=== PATIENT | female | born 1995 | race Caucasian/White ===

== ENCOUNTER 2017-07-05 18:38 | Emergency (ER) | payer OTHER ==
[2017-07-05 18:44] VITALS: BP 119/68
[2017-07-05 19:11] LABS: APPEARANCE,URINE CLOUDY; BILIRUBIN,URINE NEGATIVE (NEGATIVE); GLUCOSE, URINE NEGATIVE (NEGATIVE); KETONES,URINE NEGATIVE (NEGATIVE); LEUKOCYTE ESTERASE,URINE TRACE (NEGATIVE); NITRITE,URINE POSITIVE (NEGATIVE); PROTEIN,URINE 30 mg/dL (NEGATIVE); URINE SPECIFIC GRAVITY 1.009
[2017-07-05] MEDS ORDERED: PHENAZOPYRIDINE HCL 100 MG TABLET PO ONE (20:38)
[2017-07-05] MEDS ORDERED: CEPHALEXIN 500 MG CAPSULE PO ONE (20:38)
--- NOTE | 2017-07-05 20:41 | ER Document Report ---
HPI - HPI Patient complains to provider of: UTI symptoms Onset: Last week Onset/Duration: Persistent Quality of pain: Burning Pain Level: 4 Context: Patient presents complaining of urinary frequency, dysuria and hematuria. Patient denies any fever or back pain. Patient just complains of bladder tenderness. Patient denies any nausea or vomiting. Associated Symptoms: Other - Urinary symptoms. denies: Fever, Vomiting Exacerbated by: Denies Relieved by: Denies Similar symptoms previously: Yes Recently seen / treated by doctor: No - ROS ROS below otherwise negative: Yes Systems Reviewed and Negative: Yes All other systems reviewed and negative - CONSTITUTIONAL Constitutional: DENIES: Fever - GASTROINTESTINAL Gastrointestinal: REPORTS: Abdominal Pain. DENIES: Nausea, Patient vomiting - URINARY Urinary: REPORTS: Dysuria, Frequency - MUSCULOSKELETAL Musculoskeletal: DENIES: Back Pain - DERM Skin Color: Normal Skin Problems: None Past Medical History - General Information source: Patient - Social History Smoking Status: Current Every Day Smoker Smoking Education Provided: Yes Frequency of alcohol use: Occasional Drug Abuse: None Occupation: Foodservice Family History: Reviewed & Not Pertinent - Medical History Medical History: Negative Past Surgical History: Reports: Other - Rhinoplasty Vertical Provider Document - CONSTITUTIONAL Agree With Documented VS: Yes Exam Limitations: No Limitations General Appearance: WD/WN, No Apparent Distress - INFECTION CONTROL TRAVEL OUTSIDE OF THE [place] IN LAST 30 DAYS: No - HEENT HEENT: Atraumatic, Normocephalic - NECK Neck: Normal Inspection - RESPIRATORY Respiratory: Breath Sounds Normal, No Respiratory Distress O2 Sat by Pulse Oximetry: 100 - CARDIOVASCULAR Cardiovascular: Regular Rate, Regular Rhythm, No Murmur - GI/ABDOMEN Gastrointestinal: Abdomen Soft, Abdomen Tender - Suprapubic - BACK Back: Normal Inspection. negative: CVA Tenderness-Right, CVA Tenderness-Left - MUSCULOSKELETAL/EXTREMETIES Musculoskeletal/Extremeties: MAEW - NEURO Level of Consciousness: Awake, Alert, Appropriate - DERM Integumentary: Warm, Dry, No Rash Course - Re-evaluation Re-evalutation: 07/05/17 20:39 Patient nontoxic in appearance. No CVA tenderness. No concern for pyelonephritis at this time. Discussed worsening symptoms that patient should return for. Patient verbalized understanding and agrees with plan of care. - Vital Signs Vital signs: Temp Pulse Resp BP Pulse Ox 98.0 F 77 16 119/68 100 07/05/17 18:43 07/05/17 18:43 07/05/17 18:43 07/05/17 18:43 07/05/17 18:43 - Laboratory Laboratory results interpreted by me: 07/05/17 18:50 Urine Protein 30 H Urine Blood LARGE H Urine Nitrite POSITIVE H Urine Urobilinogen 4.0 H Ur Leukocyte Esterase TRACE H Discharge - Discharge Clinical Impression: UTI (urinary tract infection) Qualifiers: Urinary tract infection type: site unspecified Hematuria presence: with hematuria Qualified Code(s): N39.0 - Urinary tract infection, site not specified Condition: Stable Disposition: HOME, SELF-CARE Instructions: Cephalexin ([facility]), Urinary Anesthetic Agent ([facility]), Urinary Tract Infection ([facility]) Additional Instructions: Return immediately for any new or worsening symptoms Followup with your primary care provider, call tomorrow to make a followup appointment Prescriptions: Cephalexin Monohydrate [Keflex 500 mg Capsule] 500 mg PO Q6H 5 Days capsule Phenazopyridine HCl [Pyridium 200 mg Tablet] 200 mg PO TID #15 tablet Forms: Return to Work Referrals: [facility] [Provider Group] - Follow up as needed
== END 2017-07-05 21:00 | disposition home or self-care (01) ==
LOC: ER 18:38
DX: N39.0 Urinary tract infection, site not specified (principal); F17.200 Nicotine dependence, unspecified, uncomplicated
CPT/HCPCS: 99283; 87086; 87088; 81001; 87186; J3490

== ENCOUNTER 2018-10-29 15:33 | Emergency (ER) | payer OTHER ==
[2018-10-29] MEDS ORDERED: ONDANSETRON 4 MG TAB.RAPDIS PO ONE (16:05)
--- NOTE | 2018-10-29 16:10 | ER Document Report ---
ED General - General Chief Complaint: Vomiting Stated Complaint: VOMITTING Time Seen by Provider: 10/29/18 15:47 Mode of Arrival: Ambulatory Information source: Patient Notes: She presents emergency department with complaints of coughing sneezing and vomiting blood. She reports this started approximately 2 days ago. She claims to have vomited up at least a cup of blood yesterday. Coughing up chunks of blood. Sneezing with blood noted. Reports she feels very weak and dizzy and nauseated. She reports she just referred turn from the [place] after being on a cruise. Before that she went to the [facility]. She reports that she drank very heavily from morning till night every single day while she was on this vacations. She reports she does remember vomiting a couple times when she was drinking. Denies past medical history. Patient reports normal bowel movements no blood noted. Complaints of epigastric abdominal pain TRAVEL OUTSIDE OF THE [place] IN LAST 30 DAYS: No - HPI Onset: Other - 2 days Onset/Duration: Persistent Quality of pain: Achy, Burning Pain Level: 4 Associated symptoms: Nausea Exacerbated by: Denies Relieved by: Denies Similar symptoms previously: No Recently seen / treated by doctor: No - Related Data Allergies/Adverse Reactions: No Known Allergies Allergy (Verified 10/29/18 15:35) Past Medical History - General Information source: Patient Last Menstrual Period: 10/17/18 - Social History Smoking Status: Unknown if Ever Smoked Frequency of alcohol use: Social Drug Abuse: None Family History: Malignancy - Breast cancer Patient has suicidal ideation: No Patient has homicidal ideation: No Pulmonary Medical History: Reports: Hx Bronchitis Renal/ Medical History: Denies: Hx Peritoneal Dialysis Past Surgical History: Reports: Hx Nose Surgery - cosmetic, Other - Rhinoplasty Review of Systems - Review of Systems Notes: Review HPI for review of systems., All other systems negative Physical Exam - Vital signs Vitals: Temp Pulse Resp BP Pulse Ox 98.4 F 74 18 114/73 98 10/29/18 15:40 10/29/18 15:40 10/29/18 15:40 10/29/18 15:40 10/29/18 15:40 - Notes Notes: PHYSICAL EXAMINATION: GENERAL: Well-appearing and in no acute distress nontoxic looking HEAD: Atraumatic, normocephalic. EYES: Pupils equal round , extraocular movements intact, sclera anicteric, conjunctiva are normal. ENT: nares patent, oropharynx clear without exudates. Moist mucous membranes. NECK: Normal range of motion, supple without lymphadenopathy LUNGS: CTAB and equal. No wheezes rales or rhonchi. HEART: Regular rate and rhythm without murmurs ABDOMEN: Soft, epigastric tenderness. No guarding, no rebound EXTREMITIES: Normal range of motion, no pitting edema. No cyanosis. NEUROLOGICAL: Cranial nerves grossly intact. Normal sensory/motor exams. PSYCH: Normal mood, normal affect. SKIN: Warm, Dry, normal turgor, no rashes or lesions noted Course - Re-evaluation Re-evalutation: 10/29/18 16:10 Patient looks good nontoxic stable. Will evaluate with lab work. 10/29/18 17:12 Labs are completely unremarkable. Patient has not vomited or coughed up blood while here. Will discharge patient instructed her to minimize her drinking. And follow-up with a primary care provider. She was also instructed to return here for any signs or symptoms of abdominal pain fever vomiting blood or coughing up blood again. - Vital Signs Vital signs: Temp Pulse Resp BP Pulse Ox 97.8 F 62 17 117/71 98 10/29/18 17:31 10/29/18 17:31 10/29/18 17:31 10/29/18 17:31 10/29/18 17:31 - Laboratory Result Diagrams: 10/29/18 16:23 10/29/18 16:23 Discharge - Discharge Clinical Impression: coughing and vomiting up blood Condition: Stable Disposition: HOME, SELF-CARE Additional Instructions: *You have been evaluated for nausea/vomiting and coughing up blood *Abstain from alcohol, let your body rest *Ensure adequate fluid intake *Follow up with a primary care provider within 5 days for recheck *Return to ED for worsening condition, changes, needs, severe abdominal pain, bleeding ,concerns
[2018-10-29 16:35] LABS: ABSOLUTE EOSINOPHILS # (AUTO) 0.2 10^3/uL (0.0-0.6); ABSOLUTE LYMPHOCYTES (AUTO) 1.4 10^3/uL (0.5-4.7); ABSOLUTE MONOCYTES (AUTO) 0.6 10^3/uL (0.1-1.4); ABSOLUTE NEUT (AUTO) 4.5 10^3/uL (1.7-8.2); BASOPHILS % (AUTO) 0.6 % (0-2); EOSINOPHILS % (AUTO) 2.5 % (0-6); HEMATOCRIT 41.1 % (36.0-47.0); LYMPHOCYTES % (AUTO) 21.2 % (13-45); MEAN CORPUSCULAR HEMOGLOBIN 29.4 pg (27.0-33.4); MEAN CORPUSCULAR VOLUME 87 fl (80-97); MONOCYTES % (AUTO) 8.6 % (3-13); PLATELET COUNT 233 10^3/uL (150-450); RED BLOOD COUNT 4.75 10^6/uL (3.72-5.28); RED CELL DISTRIBUTION WIDTH 13.2 % (11.5-14.0); SEGMENTED NEUTROPHILS % (AUTO) 67.1 % (42-78); TOTAL CELLS COUNTED % (AUTO) 100 %; WHITE BLOOD COUNT 6.6 10^3/uL (4.0-10.5)
[2018-10-29 16:42] LABS: APPEARANCE,URINE SLIGHTLY-CLOUDY; BILIRUBIN,URINE NEGATIVE (NEGATIVE); COLOR,URINE YELLOW; GLUCOSE, URINE NEGATIVE (NEGATIVE); KETONES,URINE NEGATIVE (NEGATIVE); LEUKOCYTE ESTERASE,URINE NEGATIVE (NEGATIVE); NITRITE,URINE NEGATIVE (NEGATIVE); PROTEIN,URINE NEGATIVE (NEGATIVE); URINE SPECIFIC GRAVITY 1.021; UROBILINOGEN,URINE NEGATIVE mg/dL (<2.0)
[2018-10-29 16:58] LABS: ALANINE AMINOTRANSFERASE 33 U/L (9-52); ALBUMIN 4.5 g/dL (3.5-5.0); ALKALINE PHOSPHATASE 49 U/L (38-126); ANION GAP 8 (5-19); ASPARTATE AMINO TRANSFERASE 32 U/L (14-36); BILIRUBIN,DIRECT 0.1 mg/dL (0.0-0.4); BILIRUBIN,TOTAL 0.9 mg/dL (0.2-1.3); BLOOD UREA NITROGEN 15 mg/dL (7-20); CALCIUM 9.5 mg/dL (8.4-10.2); CARBON DIOXIDE 27 mmol/L (22-30); CHLORIDE 104 mmol/L (98-107); GLUCOSE 95 mg/dL (75-110); POTASSIUM 3.9 mmol/L (3.6-5.0); SODIUM 138.5 mmol/L (137-145); TOTAL PROTEIN 7.2 g/dL (6.3-8.2)
[2018-10-29 19:04] VITALS: BP 117/71
== END 2018-10-29 17:31 | disposition home or self-care (01) ==
LOC: ER 15:33
DX: R04.2 Hemoptysis (principal)
CPT/HCPCS: 99283; 36415; 85025; 81025; 80053; 81001; S0119